=== PATIENT | female | born 1990 | race Caucasian/White ===

== ENCOUNTER 2020-05-28 16:23 | Emergency (ER) | payer OTHER, SELFPAY ==
[2020-05-28 16:24] VITALS: BP 135/85; PULSE 90; RESP 16; TEMP 36.6; O2SAT 96; BMI 33.2
--- NOTE | 2020-05-28 16:36 | US_ITS ---
PROCEDURE: US ABDOMEN LIMITED CLINICAL INDICATION: RUQ pain COMPARISON: No exams were available for comparison FINDINGS: PANCREAS: Unremarkable. No obvious mass or abnormal fluid collection. No ductal dilatation LIVER: No focal liver lesions demonstrated. Homogeneous echogenicity. No intrahepatic biliary ductal dilatation evident. There is appropriate direction of blood flow within a non dilated portal vein RIGHT KIDNEY: Unremarkable. Normal size and echogenicity. No hydronephrosis GALLBLADDER: Gallbladder is contracted . The patient has not been NPO for the required time. No obvious stones. Common bile duct is normal at 2 mm. IMPRESSION: Contracted gallbladder which may be due to the nonfasting state. No obvious abnormalities. Consider repeating exam with appropriate preparation. Dictated by: Kaiser Joaquin MD 05/29/2020 07:47 Kaiser Joaquin MD in [place] 05/29/2020 07:47
[2020-05-28 17:06] LABS: Microscopic, Urine URINE MICROSCOPIC (MICROSCOPIC)
[2020-05-28 17:07] LABS: Appearance,Urine CLEAR (Clear); Bilirubin,Urine Negative (Negative); Blood, Urine Negative (Negative); Color,Urine YELLOW (Yellow); Glucose,Urine (UA) Negative (Negative); Ketones,Urine Negative (Negative); Leukocyte Esterase,Urine Negative (Negative); Nitrate,Urine Negative (Negative); Protein,Urine Negative (Negative); Specific Gravity, Urine >= 1.030 (1.005-1.030)
[2020-05-28 17:14] LABS: Basophils % 0.5 % (0.1-2.0); Eosinophils # 0.1 K/mm3 (0.0-0.4); Eosinophils % 0.9 % (0.1-12.0); Hematocrit 39.8 % (37.0-47.0); Hemoglobin 12.5 g/dL (12.2-16.2); Lymphocytes # 1.8 K/mm3 (0.7-4.5); Mean Corpuscular HGB Conc 31.4 g/dL (31.8-35.4); Mean Corpuscular Hemoglobin 27.3 pg (27.0-31.2); Mean Platelet Volume 7.6 fl (7.4-10.4); Monocytes # 0.4 K/mm3 (0.1-1.0); Monocytes % 4.5 % (1.7-9.3); Platelet Count 286 K/mm3 (142-424); Red Blood Count 4.58 M/mm3 (4.20-5.40); Red Cell Distribution Width 12.7 % (11.5-17.5); White Blood Count 8.3 K/mm3 (4.8-10.8)
[2020-05-28 17:27] LABS: Alanine Aminotransferase 25 U/L (12-78); Albumin Level 4.4 g/dl (3.5-5.0); Albumin/Globulin Ratio 1.3 (1.1-1.8); Alkaline Phosphatase 72 U/L (38-126); Anion Gap 12.4 mEq/L (5-15); Aspartate Amino Transferase 31 U/L (14-36); Bilirubin,Total 0.3 mg/dl (0.2-1.3); Blood Urea Nitrogen 12 mg/dl (7-17); Calcium 9.4 mg/dl (8.4-10.2); Carbon Dioxide 24 mmol/L (22.0-30.0); Chloride 106 mmol/L (98-107); Creatinine Clearance Estimated 223 mL/min (50-200); Estimated Glomerular Filt Rate 118 ml/min (>60); GFR (African American) 143 ML/MIN (>60); Globulin 3.4 g/dL (1.3-3.2); Glucose 114 mg/dl (74-100); Lipase 42 U/L (23-300); Potassium 3.4 mmoL/L (3.5-5.1); Sodium 139 mmol/L (136-145); Total Protein,Serum 7.8 g/dl (6.3-8.2)
[2020-05-28 17:32] LABS: HCG Qualitative, Serum Negative (Negative)
[2020-05-28 17:40] LABS: Bacteria,Urine 1+ /lpf
--- NOTE | 2020-05-28 17:41 | HMH.EDGENADL ---
ED Disposition Clinical Impression: Biliary colic Disposition: Home, Self-Care Condition on Discharge: Good Instructions: DI for Biliary Colic Additional Instructions: Follow-up with your primary care physician for repeat ultrasound. These do be n.p.o. 8 hours before the procedure. The emergency department for worsening pain nausea vomiting or any other concerns within the next 8 hours Referrals: Noe Dawkins MD [Primary Care Provider] - - Critical Care Critical Care Time: No Attestation: On 05/28/20, the high probability of a clinically significant, sudden or life threatening deterioration of the following system(s) required my full and direct attention, intervention and personal management. The time I documented below is in addition to time spent performing reported procedures but includes the following listed in this critical care notation. Medical Decision Making - Medical Records Medical records reviewed: Yes: I reviewed the patient's medical records. - Bryce Inquiry Pt receiving controlled substance: No Vital Signs: 05/28/20 16:24 Temperature 98 F Temperature Source Oral Pulse Rate [Radial] 90 Respiratory Rate 16 Blood Pressure [Right Arm] 135/85 Blood Pressure Mean [Right Arm] 101 Blood Pressure Position [Right Arm] Sitting 02 Sat by Pulse Oximetry 96 Oxygen Delivery Method Room Air - Lab Data Lab Results 05/28/20 16:35: Urine Color Yellow, Urine Appearance Clear, Urine pH 6.0, Ur Specific [place] >= 1.030, Urine Protein Negative, Urine Glucose (UA) Negative, Urine Ketones Negative, Urine Blood Negative, Urine Nitrate Negative, Urine Bilirubin Negative, Urine Urobilinogen 1.0, Ur Leukocyte Esterase Negative, Urine RBC None, Urine WBC None, Ur Squamous Epith Cells 5-10, Urine Bacteria 1+ 05/28/20 17:06: WBC 8.3, RBC 4.58, Hgb 12.5, Hct 39.8, MCV 87.0, MCH 27.3, MCHC 31.4 L, RDW 12.7, Plt Count 286, MPV 7.6, Neut % (Auto) 72.0, Lymph % (Auto) 22.0, [place] % (Auto) 4.5, Eos % (Auto) 0.9, Baso % (Auto) 0.5, Neut # (Auto) 6.0, Lymph # (Auto) 1.8, [place] # (Auto) 0.4, Eos # (Auto) 0.1, Baso # (Auto) 0.0 05/28/20 17:06: Sodium 139, Potassium 3.4 L, Chloride 106, Carbon Dioxide 24, Anion Gap 12.4, BUN 12, Creatinine 0.60, Estimated Creat Clear 223, Estimated GFR 118, Est GFR ( Amer) 143, Glucose 114 H, Calcium 9.4, Total Bilirubin 0.3, AST 31, ALT 25, Alkaline Phosphatase 72, Total Protein 7.8, Albumin 4.4, Globulin 3.4 H, Albumin/Globulin Ratio 1.3, Lipase 42 05/28/20 17:06: Serum HCG, Qual Negative Result diagrams: 05/28/20 17:06 05/28/20 17:06 Orders (Tests/Meds): ED MEDICATIONS Discontinued Medications Generic Name Dose Route Start Last Admin Trade Name Freq PRN Reason Stop Dose Admin Ketorolac Tromethamine 30 mg 05/28/20 16:36 05/28/20 17:26 Ketorolac 30mg/Ml Vial IV 05/28/20 16:37 30 mg ONCE ONE Administration ORDERS Category Date Time Status US abdomen limited Stat Exams 05/28/20 16:36 Taken Medical Decision Narrative: 29-year-old female presents with right upper quadrant tenderness consistent with biliary colic. She did eat just prior to arrival and ultrasound may not be as beneficial in this setting. I doubt acute cholecystitis based on symptoms as she is afebrile white blood cell count is normal and clinically does not appear to be related. Plan to give gallbladder precautions and discharge with outpatient referral for outpatient ultrasound for more definitive diagnosis General Adult HPI - General Chief complaint: PAIN Stated complaint: abd pain Time Seen by Provider: 05/28/20 16:25 Mode of Arrival: Ambulatory Limitations: No Limitations Description of Symptoms (Recalled from ER Triage Doc. by RN): TO ED PER [facility] PT SENT FROM PCP'S OFFICE FOR EVAL DUE TO RUQ ABD PAIN RADIATING INTO BACK. PT STATES SHE HAS HAD INTERMITTENT EPISODES OF SYMPTOMS IN PAST. PT STATES SHE ATE PIZZA AT NOON TODAY - History of Present Illness HPI narrative:
--- NOTE | 2020-05-28 18:45 | PC.NURSE ---
PT STATES SOME RELIEF OF PAIN WITH MEDS GIVEN
--- NOTE | 2020-05-28 19:15 | PC.NURSE ---
Blank from radiology speaking with MD at this time in reference to the ultrasound on the gallbladder they performed earlier.
[2020-05-28 19:24] VITALS: BP 158/78; PULSE 78; RESP 15; TEMP 36.6; O2SAT 98
== END 2020-05-28 19:25 | disposition home or self-care (01) ==
PROVIDERS: Emergency Provider Emergency Medicine; PCP Family Medicine
DX: K80.50 Calculus of bile duct without cholangitis or cholecystitis without obstruction (principal)
CPT/HCPCS: 76705; 80053; 81001; 83690; 84703; 85025; 96374; 99283

== ENCOUNTER → 2020-08-31 10:41 | Outpatient (CLI) | payer OTHER, SELFPAY ==
[2020-09-01 09:13] LABS: Hepatitis B Surf Ab Quant >1000.0 mIU/mL (Immunity>9.9); Rubella Antibodies, IgG 1.55 index (Immune >0.99)
[2020-09-01 17:13] LABS: Mumps Abs, IgG 16.2 AU/mL (Immune >10.9); Varicella Zoster IgG 1636 index (Immune >165)
[2020-09-03 19:15] LABS: QuantiFERON-TB Gold Plus Negative (Negative)
== END ==
PROVIDERS: Visit Provider Family Medicine
DX: Z01.84 Encounter for antibody response examination (principal); Z11.1 Encounter for screening for respiratory tuberculosis
CPT/HCPCS: 36415; 86480; 86706; 86735; 86762; 86765; 86787

== ENCOUNTER 2024-09-23 10:00 | Outpatient (CLI) | payer BC, SELFPAY ==
--- OUTSIDE RECORDS SUMMARY | 2024-09-23 10:02 | XMS_ITS ---
Author Organization Unknown Address [address] [place], [place] [id number] Phone Care Team Providers Care Floor Technician Name Role Phone NLALELY VANEGAS MD Attending Unavailabl e MISCELLANEOUS DR Primary Unavailable Results 12 PANEL DRUG SCREEN IN-HOUS E - Collect Date/Time: 05/23/2021 08:31 [facility] ital ID: [id number] [address] [place] [address], [address] LOINC: Test Value Unit Reference Range Code Code System Flag AMPHETAMINES NEGATIVE NORMAL: NEGATIVE BARBITURATE NEGATIVE NORMAL: NEGATIVE 85762-0 LOINC BENZODIAZEPIN NEGATIVE NORMAL: NEGATIVE COCAINE METAB NEGATIVE NORMAL: NEGATIVE MARIJUANA NEGATIVE NORMAL: NEGATIVE METHADoNE NEGATIVE NORMAL: NEGATIVE METHAMPHETAMINE NEGATIVE NORMAL: NEGATIVE MORPHINE NEGATIVE NORMAL: NEGATIVE OXYCODONE NEGATIVE NORMAL: NEGATIVE PHENCYCLIDINE NEGATIVE NORMAL: NEGATIVE MDMA NEGATIVE NORMAL: NEGATIVE TRICYC ANTIDE NEGATIVE NORMAL: NEGATIVE Social History Type Status Start Date End Date Code Code Syst em Smoking History Never smoker (Never Smoked) 433649254 SNOMED CT Sex Female Hospital Discharge Instructions Should you have any questions prior to discharge, please contact a member of your healthcare team. If you have left the hospital and have any questions, please contact your primary care physician. Reason For Referral No Data Found Plan of Treatment No Data Found Personal Care Team Section
--- NOTE | 2024-09-23 10:04 | US_ITS ---
FINAL REPORT TECHNIQUE: Multiple transverse and longitudinal images CLINICAL HISTORY: PAIN/GALL BLADDER COMPARISON: None FINDINGS: Diffuse increased echogenicity within the gallbladder most suggestive of thickened sludge. No evidence of wall thickening. No stone disease. No biliary ductal dilatation is appreciated. No fluid collections are seen. Limited portions of the right liver are unremarkable. Limited portions of the right kidney are unremarkable. Pancreas is largely obscured. IMPRESSION: Sludge filled gallbladder without stone disease or biliary obstruction. Reviewed, Interpreted and Dictated by Yelitza Patel MD Transcribed by Zuleyma Shannon Authenticated and . [facility]
== END 2024-09-23 23:59 | disposition home or self-care (01) ==
LOC: RAD 10:00
PROVIDERS: PCP Nurse Practitioner Family; Visit Provider Nurse Practitioner Family
DX: R93.2 Abnormal findings on diagnostic imaging of liver and biliary tract (principal); R10.9 Unspecified abdominal pain
CPT/HCPCS: 76705

== ENCOUNTER 2024-09-30 10:46 | Outpatient (CLI) | payer BC, SELFPAY ==
--- OUTSIDE RECORDS SUMMARY | 2024-09-30 10:49 | XMS_ITS ---
Author Organization Unknown Address [address] [place], [place] [phone] Phone Care Team Providers Care Structural Test Engineer Name Role Phone NALLELY VANEGAS MD Attending Unavailabl e MISCELLANEOUS DR Primary Unavailable Results 12 PANEL DRUG SCREEN IN-HOUS E - Collect Date/Time: 05/23/2021 08:31 [facility] ital ID: [id number] [address] [place] [address], [address] LOINC: Test Value Unit Reference Range Code Code System Flag AMPHETAMINES NEGATIVE NORMAL: NEGATIVE BARBITURATE NEGATIVE NORMAL: NEGATIVE 00677-5 LOINC BENZODIAZEPIN NEGATIVE NORMAL: NEGATIVE COCAINE METAB NEGATIVE NORMAL: NEGATIVE MARIJUANA NEGATIVE NORMAL: NEGATIVE METHADoNE NEGATIVE NORMAL: NEGATIVE METHAMPHETAMINE NEGATIVE NORMAL: NEGATIVE MORPHINE NEGATIVE NORMAL: NEGATIVE OXYCODONE NEGATIVE NORMAL: NEGATIVE PHENCYCLIDINE NEGATIVE NORMAL: NEGATIVE MDMA NEGATIVE NORMAL: NEGATIVE TRICYC ANTIDE NEGATIVE NORMAL: NEGATIVE Social History Type Status Start Date End Date Code Code Syst em Smoking History Never smoker (Never Smoked) [id number] SNOMED CT Sex Female Hospital Discharge Instructions Should you have any questions prior to discharge, please contact a member of your healthcare team. If you have left the hospital and have any questions, please contact your primary care physician. Reason For Referral No Data Found Plan of Treatment No Data Found Personal Care Team Section
[2024-09-30 10:50] VITALS: BMI 31.3
[2024-09-30 11:24] LABS: Albumin Level 4.3 g/dl (3.5-5.0); Chloride 103 mmol/L (98-107); Hematocrit 40.5 % (37.0-47.0); Hemoglobin 13.3 g/dL (12.2-16.2); Mean Corpuscular HGB Conc 32.8 g/dL (31.8-35.4); Mean Corpuscular Hemoglobin 27.9 pg (27.0-31.2); Mean Corpuscular Volume 84.9 fl (81-99); Platelet Count 344 K/mm3 (142-424); Red Blood Count 4.77 M/mm3 (4.20-5.40); Sodium 137 mmol/L (136-145); White Blood Count 7.5 K/mm3 (4.8-10.8)
[2024-09-30 11:25] LABS: Potassium 3.5 mmoL/L (3.5-5.1)
[2024-09-30 11:27] LABS: Alanine Aminotransferase 17 U/L (12-78); Albumin/Globulin Ratio 1.2 (1.1-1.8); Alkaline Phosphatase 62 U/L (38-126); Anion Gap 11.5 mEq/L (5-15); Aspartate Amino Transferase 22 U/L (14-36); Bilirubin,Total 0.7 mg/dl (0.2-1.3); Blood Urea Nitrogen 9 mg/dl (7-17); Carbon Dioxide 26 mmol/L (22.0-30.0); Creatinine Clearance Estimated 134 mL/min (50-200); Creatinine,Serum 0.90 mg/dl (0.52-1.04); Estimated Glomerular Filt Rate 72 ml/min (>60); GFR (African American) 87 ML/MIN (>60); Globulin 3.7 g/dL (1.3-3.2); Total Protein,Serum 8.0 g/dl (6.3-8.2)
[2024-09-30 11:28] LABS: Calcium 9.3 mg/dl (8.4-10.2); Glucose 105 mg/dl (74-100)
[2024-09-30 12:12] LABS: RBC Morphology Normal; Total Cells Counted 100
== END 2024-09-30 23:59 | disposition home or self-care (01) ==
LOC: PREOP 10:46
PROVIDERS: PCP Family Medicine; Visit Provider Surgery
DX: Z01.812 Encounter for preprocedural laboratory examination (principal)
CPT/HCPCS: 80053; 85007; 85014; 85018; 85048; 85049

== ENCOUNTER 2024-10-23 10:31 | Day surgery (SDC) | payer BC, SELFPAY ==
[2024-10-23] VITALS (10 sets, daily range): BP systolic 113–142; BP diastolic 45–82; PULSE 82–107; RESP 16–20; TEMP 36.1–36.4; O2SAT 92–100; BMI 31.3
[2024-10-23] MEDS: LACTATED RINGERS 1000ML 1,000 ML 25 ML IV (11:07)
[2024-10-23 11:10] LABS: Urine Pregnancy, HCG Qual. Negative (Negative)
--- NOTE | 2024-10-23 11:22 | EXP.ANES.CKL ---
[facility] Disclaimer: The information contained in this section may have been updated after the patient was seen, as this information can be updated by other users. Medical History No significant past medical history Surgical History History of mandibular surgery History of tonsillectomy and adenoidectomy History of eye surgery Family History Other Family history of cancer Family history of heart disease Family history of thyroid disease Social History Smoking Status: Never smoker alcohol intake: never substance use type: denies use current occupational status: employed Travel in the last 8 weeks?: Inside the [facility] Anesthesia Checklist Patient Identification Patient Identification: Arm Band and Verbal (Name & ) Structural Data Admitted From: Home Planned Operative Procedure/s: Laparoscopic cholecystectomy Consent for Planned Operative Procedure(s) Verified: Yes Verified Documents: Surgical Consent NPO Status Verified Time NPO: 00:00 Additional verifications Anesthesia Reactions: No Hx Blood Transfusions: No Blood Transfusion Reaction: No Airway Assessment Mallampati Score:: Class II C-Spine Mobility Assessed: Yes TMJ Mobility Assessed: Yes Dentition: Good Dentition Neurological Assessment Level of Consciousness: Awake, Alert and Appropriate Hx Seizures: No Numbness or tingling in extremities: No Anesthesia Plan Anesthesia Risk discussed: Yes Anesthesia Plan: Verified ASA Class: II Anesthesia Type: General
[2024-10-23] MEDS: SODIUM CHLORIDE IRRIG SOLUTION 3,000 ML 25 ML IR (12:00)
[2024-10-23] MEDS: LIDOCAINE 1% 20ML MDV 20 ML (12:00)
--- NOTE | 2024-10-23 13:57 | P.OP_ITS ---
Date of procedure: 10/23/24 Pre-op Diagnosis:: Acalculous cholecystitis, gallbladder disease Post-op Diagnosis:: Same Procedure performed:: Laparoscopic cholecystectomy Surgeon:: Darryl Suggs MD POOL COORDINATOR:: Mook Allen Anesthesia: GETKatey Estimated blood loss (mL): 60 Clinical Note:: Patient is a 34-year-old female referred for gallbladder. She works as a travel services professional. She had actually been seen in the emergency department 4 years ago with symptoms of biliary colic. At that time ultrasound revealed contracted gallbladder. Recently over the past couple of months she has had symptoms consistent with sporadic biliary colic with acute right upper quadrant pain with radiation into her back. This usually has a duration of about 3 hours. It somewhat random but she did have a recent episode after eating [employer]. She had an ultrasound done on 09/23/2024 which revealed sludge filled gallbladder without stones or biliary obstruction . I reviewed her ultrasound images. This appears to be quite impressive sludge consistent with congealed material filling the gallbladder in its entirety. Given this I offered her surgery. She would like to proceed. She hopes to have this done on a given her insurance and travel nurse schedule. I will see if this can be arranged. I explained to her the nature and details of the proposed procedure along with the associated risks and expected outcome. Subsequently, while patient was working out of state she had severe gallbladder attack and she was seen in outside hospital and was able to be managed as an outpatient. . Operative findings:: She had a severely thickened tense very elongated firm gallbladder with adhesions. The gallbladder neck was somewhat kinked back upon itself creating essentially hydropic gallbladder. Gallbladder was filled with thick congealed sludge. . Operative note:: Consent was obtained patient was taken the operating room. She was given preoperative intravenous antibiotics. In the operating room she was placed in a supine position. General anesthesia was induced via endotracheal tube. Abdomen was prepped and draped in the standard surgical fashion. Subumbilical skin incision was made. After performing abdominal wall left Veress needle was inserted. CO2 pneumoperitoneum was achieved to 15 mmHg. 11 mm optical trocar was inserted at the umbilicus. Intraperitoneal contents were visualized. She was positioned in reverse Trendelenburg left side down. A couple 5 mm trocars were inserted in the right upper abdomen. 11 mm trocar was inserted in the epigastrium. Gallbladder was grasped retracted anteriorly over the dome of the liver. This required the toothed grasper as the gallbladder was very thickened firm and somewhat tense. It was retracted anteriorly and superiorly over the dome of the liver. There were some omental adhesions to the gallbladder which were taken down using mostly blunt dissection and some limited use of ultrasonic harmonic luz. There was a redundant firm area which was similarly, at first inspection, some distance from the gallbladder. There was concern that this could be lesion within the common duct. However with prolonged dissection this was determined to be actually a very redundant elongated thickened inflamed gallbladder with the neck kinked back upon itself. Very prolonged careful dissection was carried out ultimately identifying the cystic duct and cystic artery. Cystic duct was isolated, multiply clipped, and sharply divided. Cystic artery was isolated and coagulated with ultrasonic harmonic luz and divided. Gallbladder was dissected free from the liver in a retrograde fashion using ultrasonic harmonic luz. However, much of the dissection required use of laparoscopic hook electrocautery due to the thickened inflamed nature of the gallbladder adherent to the liver. There was some unavoidable spillage of bile during the dissection process and the bile was characterized as a very thick sludgelike congealed bile which was immediately suctioned free. The gallbladder was placed within an Endo Catch retrieval device and removed peritoneal cavity via the umbilical trocar site which required extension of the fascial incision for delivery. Gallbladder fossa was inspected for hemostasis which was assured. Thorough irrigation was performed of the perihepatic space and aspirated until clear. CO2 pneumoperitoneum was then evacuated. Fascia at the umbilicus was closed with multiple interrupted 0 Ethibond sutures. CO2 pneumoperitoneum was reestablished and laparoscopic surveillance was carried out which ensured the umbilical trocar site to have good hemostasis. Residual blood and fluid was suctioned free. Trocars were then removed as CO2 pneumoperitoneum was once again evacuated. Local anesthetic was infiltrated. Skin incisions were closed with 4-0 Monocryl subcuticular fashion. Steri-Strips and dressings were applied. Condition: stable Disposition: PACU Complications:: None immediately apparent
--- NOTE | 2024-10-23 14:08 | P.PNANES_ITS ---
[facility] Anesthesia Record Part I Anesthesia Record I Intake, IV Amount: 800 Hydration: Adequate Estimated blood loss (mL): 10 Urine output (mL): 0 Blood Products used (#): none Blood Pressure: 123/76 SaO2: 92 Pulse Rate: 95 Airway Patency: Patent Respiratory Rate: 18 Temperature: 97.0 F Patient is:: Drowsy and Stable Stable to PACU at:: 14:05
[2024-10-23] MEDS: KETOROLAC 30MG/ML VIAL 30 MG IV (14:19)
[2024-10-23] MEDS: ONDANSETRON 4MG/2ML VIAL 4 MG IV (14:22)
[2024-10-23] MEDS: MORPHINE 2MG/ML SYRINGE 2 MG IV (14:37)
--- NOTE | 2024-10-24 09:12 | P.PNANES_ITS ---
[facility] Anesthesia Record Part II Anesthesia Record Part II Discharge Time: 14:41 Destination: Surgical Day Care (OP Surgery) PACU nurse assessment reviewed?: Yes Patient Condition:: Good Anesthesia Complications:: None Swallowing reflex intact?: Yes Airway Patency: Patent Cyanosis?: No Blood Pressure: 113/73 SaO2: 96 Respiratory Rate: 18 Pulse Rate: 89 Temperature: 97 F Mental Status: Alert & Oriented Pain level:: 0 Nausea and/or vomitting:: None Intake, IV Amount: 0 Hydration: Adequate
[2024-10-24 09:13] VITALS: BP 113/73; PULSE 89; RESP 18; TEMP 36.1; O2SAT 96
== END 2024-10-23 15:12 | disposition home or self-care (01) ==
PROVIDERS: PCP Family Medicine; Visit Provider Surgery
PROC: 0FT44ZZ Resection of Gallbladder, Percutaneous Endoscopic Approach (ICD-10-PCS; CPT 47562; principal; 2024-10-23 12:00)
DX: K81.2 Acute cholecystitis with chronic cholecystitis (principal)
CPT/HCPCS: 47562; 81025; 96374; J0690; J1100; J1885; J2003; J2250; J2270; J2405; J2704; J2795; J3010; J7120